=== PATIENT | female | born 1970 | race Caucasian/White ===

== ENCOUNTER 2023-07-18 15:16 | Emergency (ER) | payer BC, SELFPAY ==
[2023-07-18 15:25] VITALS: BP 132/80; PULSE 77; RESP 21; TEMP 36.9; O2SAT 98; BMI 32.9
--- NOTE | 2023-07-18 15:38 | EXP.UTC ---
Discharge Plan Disposition Patient Disposition: Home, Self-Care Condition: Good Prescriptions Prescriptions: New methylprednisolone [Medrol (Donal)] 4 mg tablets,dose pack See Rx Instructions .Route .COMPLEX 6 Days Qty: 21 0RF Rx Instructions: taper pack; amoxicillin-pot clavulanate 875-125 mg Tablet 1 tab PO Q12H 7 Days Qty: 14 0RF No Action atorvastatin 80 mg tablet 80 mg PO DAILY Patient Comments: TAKE 1 TABLET BY MOUTH ONCE DAILY ezetimibe 10 mg tablet 10 mg PO DAILY Patient Comments: TAKE 1 TABLET BY MOUTH ONCE DAILY cholecalciferol (vitamin D3) 1,250 mcg (50,000 unit) capsule 1,250 mcg PO DAILY Patient Comments: TAKE 1 CAPSULE BY MOUTH TWICE A WEEK Wegovy 0.25 mg/0.5 mL pen injector 0.25 mg SQ DAILY Referrals Follow up/Referrals: Katlyn Mcleod APRN [Primary Care Provider] - See instructions Activity Restrictions/Add. Instructions Additional Instructions/Restrictions: *Monitor Temp, Over the counter Motrin or Tylenol as directed/as needed Tylenol every 4 hours and Motrin every 6 hours (as long as your family doctor has told you that you can take it) for fever or pain. and straight to ER if unable to lower temp less than 101.0 after medication given *Warm salt water gargles may help to soothe the throat *Throat Lozenges? *Warm fluids like tea with honey may help to soothe the throat? *Sleep elevated *Humidifier/Vaporizer Take medication as prescribed Follow up IMMEDIATELY for new or worsening symptoms or no Noticeable improvement over the next 48-72 hours. 911 for difficulty breathing or swallowing Clinical Impressions Clinical Impression: Sinusitis Qualifiers: Sinusitis location: unspecified location Chronicity: unspecified Qualified Code(s): J32.9 - Chronic sinusitis, unspecified Stand Alone Forms Stand Alone Forms: Work/School Release Instructions Patient Instructions: Sinusitis, DI for Sinusitis Discharge ED Provider: Anh Rios [facility] [place] HPI General Stated complaint: susi Mode of Arrival: Ambulatory Source of Information: Patient Limitations: No Limitations Time Seen by Provider: 07/18/23 15:38 Description of Symptoms (Recalled from Triage Doc. by RN): PATIENT C/O SINUS PRESSURE AND CONGESTION X 3 DAYS HEENT Symptoms (Recalled from RN notes): Yes Resp Symptoms (Recalled from RN notes): No Skin Symptoms (Recalled from RN notes): No MS Symptoms (Recalled from RN notes): No Functional Status (Recalled from RN notes): WNL History of Present Illness Provider Complaint: Patient states that she had some sinus congestion and pressure last week then it got better but about 3 days ago it started again and is worse with sore throat States that today she was feeling worse so she came in to get checked Related Data Home Medications Medication Instructions Recorded Confirmed atorvastatin 80 mg tablet 80 mg PO DAILY 07/18/23 07/18/23 cholecalciferol (vitamin D3) 1,250 1,250 mcg PO DAILY 07/18/23 07/18/23 mcg (50,000 unit) capsule ezetimibe 10 mg tablet 10 mg PO DAILY 07/18/23 07/18/23 semaglutide (weight loss) 0.25 0.25 mg SQ DAILY 07/18/23 07/18/23 mg/0.5 mL subcutaneous pen injector (Wegovy) Previous Rx's Medication Instructions Recorded amoxicillin 875 mg-potassium 1 tab PO Q12H 7 days #14 tabs 07/18/23 clavulanate 125 mg tablet methylprednisolone 4 mg tablets in See Rx Instructions .Route 07/18/23 a dose pack (Medrol (Donal)) .COMPLEX 6 days #21 tabs Allergies Allergy/AdvReac Type Severity Reaction Status Date / Time No Known Allergies Allergy Verified 07/18/23 15:35 Worker's Comp Is this a Worker's Comp case?: No [facility] Disclaimer: The information contained in this section may have been updated after the patient was seen, as this information can be updated by other users. Medical History (Updated 07/18/23 @ 15:43 by Anh Rios APRN) Hyperlipidemia
[2023-07-18 16:04] VITALS: BP 132/80; PULSE 77; RESP 21; TEMP 36.9; O2SAT 98
== END 2023-07-18 16:06 | disposition home or self-care (01) ==
PROVIDERS: Emergency Provider Nurse Practitioner; PCP Nurse Practitioner
DX: J01.90 Acute sinusitis, unspecified (principal); R09.81 Nasal congestion; R07.0 Pain in throat; E78.5 Hyperlipidemia, unspecified
CPT/HCPCS: 99204; 99212; G0463

== ENCOUNTER 2023-12-26 18:17 | Emergency (ER) | payer BC, SELFPAY ==
[2023-12-26 18:30] VITALS: BP 134/84; PULSE 77; RESP 19; TEMP 36.7; O2SAT 97; BMI 27.3
--- NOTE | 2023-12-26 18:51 | EXP.UTC ---
Discharge Plan Disposition Patient Disposition: Home, Self-Care Condition: Good Prescriptions Prescriptions: New erythromycin 5 mg/gram (0.5 %) ointment 1 cm ophthalmic (eye) Q4H 7 Days Qty: 3.5 0RF ibuprofen [IBU] 800 mg tablet 800 mg PO Q8HP PRN (Reason: Moderate Pain) Qty: 30 0RF No Action atorvastatin 80 mg tablet 80 mg PO DAILY Patient Comments: TAKE 1 TABLET BY MOUTH ONCE DAILY ezetimibe 10 mg tablet 10 mg PO DAILY Patient Comments: TAKE 1 TABLET BY MOUTH ONCE DAILY Wegovy 0.25 mg/0.5 mL pen injector 0.25 mg SQ DAILY Referrals Follow up/Referrals: Julia Ibarra MD [Primary Care Provider] - See instructions Activity Restrictions/Add. Instructions Additional Instructions/Restrictions: Use the erythromycin eye ointment as directed. Take ibuprofen or tylenol for pain. Follow up with your eye doctor for recheck of this abrasion in the next 48 hours or so. Follow up with your regular doctor. GO TO THE ER FOR ANY WORSENING SYMPTOMS OR CONCERNS Clinical Impressions Clinical Impression: Right cornea abrasion, Need for Tdap vaccination Instructions Patient Instructions: DI for Corneal Abrasion, Corneal Abrasion, Tetanus, Diphtheria, Pertussis (Tdap) Vaccine, Erythromycin Ophthalmic Discharge ED Provider: Ivan Caro [facility] General Stated complaint: something in right eye , yard work Mode of Arrival: Ambulatory Source of Information: Patient Limitations: No Limitations Time Seen by Provider: 12/26/23 18:51 Description of Symptoms (Recalled from Triage Doc. by RN): Pt was weed eating and got something in her right eye. Her last tetanus shot was about 5 years ago. 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 She was not wearing eye protection. She states that since then she has had right eye irritation and excessive tearing. She denies vision changes. Her tetanus immunization is not up to date. Related Data Home Medications Medication Instructions Recorded Confirmed atorvastatin 80 mg tablet 80 mg PO DAILY 07/18/23 12/26/23 ezetimibe 10 mg tablet 10 mg PO DAILY 07/18/23 12/26/23 semaglutide (weight loss) 0.25 0.25 mg SQ DAILY 07/18/23 12/26/23 mg/0.5 mL subcutaneous pen injector (Wegovy) Previous Rx's Medication Instructions Recorded erythromycin 5 mg/gram (0.5 %) eye 1 cm ophthalmic (eye) Q4H 7 days 12/26/23 ointment #3.5 grams ibuprofen 800 mg tablet (IBU) 800 mg PO Q8HP PRN Moderate Pain 12/26/23 #30 tabs Allergies Allergy/AdvReac Type Severity Reaction Status Date / Time No Known Allergies Allergy Verified 12/26/23 18:44 Worker's Comp Is this a Worker's Comp case?: No [facility] Disclaimer: The information contained in this section may have been updated after the patient was seen, as this information can be updated by other users. Medical History (Updated 12/26/23 @ 19:24 by Ivan Caro APRN) Hyperlipidemia Surgical History History of tubal ligation History of section Social History Smoking Status: Unknown if ever smoked alcohol intake: never current occupational status: employed Travel in the last 8 weeks: None ROS Obtained: Yes All systems reviewed & no additional complaints except as documented Constitutional Constitutional: Denies chills and Denies fever(s) Eyes Eyes: Reports as per HPI, Denies change in vision and Denies eye discharge ENT Ears, Nose, Mouth, and Throat: Denies dizziness, Denies otalgia and Denies sore throat Cardiovascular Cardiovascular: Denies chest pain Respiratory Respiratory: Denies shortness of breath, Denies chest congestion, Denies cough, Denies stridor and Denies wheezing Gastrointestinal Gastrointestingal: Denies nausea or vomiting Musculoskeletal Musculoskeletal: Reports system reviewed and no additional complaints, except as documented and Denies arthralgias Integumentary/Breasts Skin/Breast: Denies rash Neurologic Neurologic: Denies dizziness and Denies paresthesias Allergic/Immunologic Allergic/Immunologic: Denies wheezing Physical Exam General General appearance: alert and in no apparent distress Head Head exam: atraumatic, normocephalic and normal inspection Eye Eye exam: Present PERRL and EOMI Expanded Eye Exam Eyelids: left: normal inspection and right: erythema Pupils: Left: size (2), Right: size (2) and Bilateral: regular, round and reactive Sclera/Conjunctival: left: normal inspection and right: injection (no foreign body noted, corneal abrasion is noted) ENT ENT exam: Present normal exam, normal oropharynx, mucous membranes moist, TM's normal bilaterally and normal external ear exam Neck Neck exam: Present normal inspection, full ROM and trachea midline; Absent meningismus or lymphadenopathy Chest Chest inspection: Present normal inspection and symmetric chest wall rise; Absent tenderness Respiratory Respiratory exam: Present normal lung sounds bilaterally; Absent respiratory distress Cardiovascular Cardiovascular exam: Present regular rate and normal rhythm; Absent JVD Abdominal Exam Abdominal exam: Present soft and normal bowel sounds; Absent distention, tenderness or guarding Extremities Exam Extremities exam: Present normal inspection, full ROM and normal capillary refill; Absent calf tenderness Back Exam Back exam: Present normal inspection; Absent tenderness Neurological Exam Neurological exam: Present alert and oriented X3 Psychiatric Psychiatric exam: Present normal affect and normal mood Skin Skin exam: Present warm, dry, intact and normal color Lymphatic Lymphatic Findings: no adenopathy Medical Decision Making Medical Records Medical records reviewed: No I reviewed the patient's medical records. Jeferson Inquiry Pt receiving controlled substance: No Vital Signs: 12/26/23 18:30 Temperature 98.0 F Temperature Source Oral Pulse Rate [Right Radial] 77 Respiratory Rate 19 Blood Pressure [Right Arm] 134/84 Blood Pressure Mean [Right Arm] 100 Blood Pressure Source [Right Arm] Automatic Cuff Blood Pressure Position [Right Arm] Sitting 02 Sat by Pulse Oximetry 97 Oxygen Delivery Method Room Air Procedures Risk/Benefits of Procedure(s) Were Explained: Yes Eye Exam/FB Removal Location: eye (R) Topical anesthetic used: tetracaine Fluorescein Stick(s) used: Yes Time Out performed: Yes Procedure performed under: direct visualization with magnification Foreign body: other (none noted) Evidence of corneal penetration: No Post-procedure medication: ophthalmic antibiotic Eye irrigated w/saline (#ccs): 25
[2023-12-26] MEDS: TET/DIPHTH/PERT-ADULT 0.5ML SYRINGE 0.5 ML IM (19:21)
[2023-12-26] MEDS: ERYTHROMYCIN BASE 1 GM OINT...G. 0.5 GM OP (19:28)
[2023-12-26] MEDS: TETRACAINE 0.5% OPTH SOL 15ML OP (19:29)
[2023-12-26] MEDS: EYE WASH IRRIGATION SOLN 118ML BOTTLE 120 ML OP (19:29)
[2023-12-26 19:33] VITALS: BP 134/84; PULSE 77; RESP 19; TEMP 36.7; O2SAT 97
== END 2023-12-26 19:33 | disposition home or self-care (01) ==
PROVIDERS: Emergency Provider Nurse Practitioner Family; PCP Family Medicine
DX: S05.01XA Injury of conjunctiva and corneal abrasion without foreign body, right eye, initial encounter (principal); W45.8XXA Other foreign body or object entering through skin, initial encounter; Z23 Encounter for immunization
CPT/HCPCS: 90471; 90715; 99212; 99214; G0463